=== PATIENT | male | born 1970 | race Caucasian/White ===

== ENCOUNTER 2022-01-07 14:38 | Inpatient (IN) | payer OTHER ==
[2022-01-07 15:26] VITALS: BMI 27.8
[2022-01-07] MEDS ORDERED: NICOTINE 10 MG CARTRIDGE (INHALER) IH PRN (15:51)
[2022-01-07] MEDS ORDERED: LOPERAMIDE HCL 2 MG CAPSULE PO PRN (15:51)
[2022-01-07] MEDS ORDERED: MAGNESIUM CITRATE 300 ML BOTTLE PO PRN (15:51)
[2022-01-07] MEDS ORDERED: MAG HYDROX/AL HYDROX/SIMETH 30 ML UNIT-DOSE CUP PO PRN (15:51)
[2022-01-07] MEDS ORDERED: MAGNESIUM HYDROX 2400MG/30ML ORAL SUSPENSION 30 ML CUP PO PRN (15:51)
[2022-01-07] MEDS ORDERED: ONDANSETRON *ODT* 4 MG TABLET SL PRN (15:51)
[2022-01-07] MEDS ORDERED: BISMUTH SUBSALICYLATE 524 MG/30 ML PO PRN (15:51)
[2022-01-07] MEDS ORDERED: IBUPROFEN 400 MG TABLET (FP) PO PRN (15:51)
[2022-01-07] MEDS ORDERED: ACETAMINOPHEN 325 MG TABLET (FP) PO PRN ×2 (15:51)
[2022-01-07] MEDS ORDERED: MENTHOL/PHENOL 1 EACH UD MM PRN (15:51)
[2022-01-07] MEDS: hydrOXYzine PAMOATE 25 MG CAPSULE (FP) PO SCH ×2 (22:25→22:36)
[2022-01-07] MEDS ORDERED: METHOCARBAMOL 500 MG TABLET ONE (22:30)
[2022-01-07] MEDS ORDERED: hydrOXYzine PAMOATE 25 MG CAPSULE (FP) PO ONE (22:30)
[2022-01-07] MEDS: MELATONIN 5 MG TABLETS PO SCH (22:36)
[2022-01-07] MEDS: METHOCARBAMOL 500 MG TABLET PO PRN (22:36)
[2022-01-07] MEDS: THIAMINE HCL 100 MG TABLET (FP) PO SCH (22:36)
[2022-01-08] MEDS: hydrOXYzine PAMOATE 25 MG CAPSULE (FP) PO SCH ×5 (06:43→22:07)
[2022-01-08] MEDS ORDERED: chlordiazePOXIDE HCL 25 MG CAPSULE PO PRN (09:24)
[2022-01-08] MEDS: PRENATAL VITAMINS W/ FOLIC ACID TABLET (FP) PO SCH (10:19)
[2022-01-08] MEDS: METHOCARBAMOL 500 MG TABLET PO PRN (10:20)
[2022-01-08] MEDS: chlordiazePOXIDE HCL 25 MG CAPSULE PO SCH ×3 (10:47→22:07)
[2022-01-08 11:22] LABS: CALCIUM 8.3 mg/dL (8.5-10.1)
[2022-01-08 11:23] LABS: ALBUMIN 3.2 g/dl (3.4-5.0)
[2022-01-08 11:26] LABS: CREATININE 1.2 mg/dL (0.55-1.3)
[2022-01-08 11:27] LABS: BILIRUBIN,TOTAL 0.3 mg/dL (0.2-1); HEMATOCRIT 46.7 % (35.4-49); HEMOGLOBIN 16.2 GM/dL (11.7-16.9); MCH 32.9 pg (25.7-33.7); MCHC 34.7 g/dl (32.0-35.9); MEAN CELL VOLUME 94.8 fl (80-96); MEAN PLT VOLUME 8.8 fl (7.5-11.1); PLATELET COUNT 196 10^3/uL (134-434); RBC 4.93 M/mm3 (4.00-5.60); RDW 14.2 % (11.9-15.9); TOT PROT 6.1 g/dl (6.4-8.2); WHITE BLOOD COUNT 5.2 K/mm3 (4.0-10.0)
[2022-01-08] MEDS: THIAMINE HCL 100 MG TABLET (FP) PO SCH (22:07)
[2022-01-08] MEDS: MELATONIN 5 MG TABLETS PO SCH (22:08)
[2022-01-08] MEDS: CALAMINE 8% TOPICAL LOTION 177 ML BOTTLE TP PRN (23:06)
[2022-01-09] MEDS: chlordiazePOXIDE HCL 25 MG CAPSULE PO SCH ×4 (05:15→22:09)
[2022-01-09] MEDS: hydrOXYzine PAMOATE 25 MG CAPSULE (FP) PO SCH ×5 (05:15→22:14)
[2022-01-09] MEDS: CALAMINE 8% TOPICAL LOTION 177 ML BOTTLE TP PRN (05:17)
[2022-01-09] MEDS: PRENATAL VITAMINS W/ FOLIC ACID TABLET (FP) PO SCH (10:21)
[2022-01-09] MEDS: METHOCARBAMOL 500 MG TABLET PO PRN (10:21)
[2022-01-09 13:07] LABS: SARS-CoV-2 NAA Not Detected (Not Detected)
[2022-01-09] MEDS: NICOTINE POLACRILEX 2 MG GUM BUC PRN ×2 (15:17→19:43)
[2022-01-09] MEDS: THIAMINE HCL 100 MG TABLET (FP) PO SCH (22:09)
[2022-01-09] MEDS: MELATONIN 5 MG TABLETS PO SCH (22:14)
[2022-01-10] MEDS: chlordiazePOXIDE HCL 25 MG CAPSULE PO SCH ×4 (05:28→22:25)
[2022-01-10] MEDS: hydrOXYzine PAMOATE 25 MG CAPSULE (FP) PO SCH ×5 (05:29→22:26)
[2022-01-10] MEDS: NICOTINE POLACRILEX 2 MG GUM BUC PRN ×3 (08:55→19:41)
[2022-01-10] MEDS: PRENATAL VITAMINS W/ FOLIC ACID TABLET (FP) PO SCH (10:26)
[2022-01-10] MEDS: METHOCARBAMOL 500 MG TABLET PO PRN (10:26)
[2022-01-10] MEDS: CALAMINE 8% TOPICAL LOTION 177 ML BOTTLE TP PRN (19:43)
[2022-01-10 21:25] VITALS: TEMP 97.5
[2022-01-10] MEDS: THIAMINE HCL 100 MG TABLET (FP) PO SCH (22:25)
[2022-01-10] MEDS: MELATONIN 5 MG TABLETS PO SCH (22:25)
[2022-01-11] MEDS ORDERED: chlordiazePOXIDE HCL 10 MG CAPSULE PO PRN
[2022-01-11] MEDS ORDERED: chlordiazePOXIDE HCL 10 MG CAPSULE PO SCH (05:00)
[2022-01-11] MEDS: hydrOXYzine PAMOATE 25 MG CAPSULE (FP) PO SCH (05:25)
[2022-01-11] MEDS: NICOTINE POLACRILEX 2 MG GUM BUC PRN (05:33)
[2022-01-11 06:24] VITALS: BP 103/63; PULSE 71
[2022-01-12] MEDS ORDERED: chlordiazePOXIDE HCL 10 MG CAPSULE PO SCH (05:00)
[2022-01-13] MEDS ORDERED: chlordiazePOXIDE HCL 10 MG CAPSULE PO ONE (05:00)
== END 2022-01-11 09:30 | disposition home or self-care (01) | DRG 774 ==
LOC: YASAS 14:38 → Y6N 22:53
PROVIDERS: ADMIT Allergy & Immunology; ATTEND Allergy & Immunology
PROC: HZ2ZZZZ Detoxification Services for Substance Abuse Treatment (ICD-10-PCS; principal; 2022-01-07)
DX: F10.230 Alcohol dependence with withdrawal, uncomplicated (principal); F14.20 Cocaine dependence, uncomplicated; F17.210 Nicotine dependence, cigarettes, uncomplicated; F32.A Depression, unspecified; L30.9 Dermatitis, unspecified; M54.50 Low back pain, unspecified; G89.29 Other chronic pain; R73.03 Prediabetes; Z59.00 Homelessness unspecified; Z56.0 Unemployment, unspecified
CPT/HCPCS: 36415; 80053; 82962; 85027; 86780; C9803; U0003; U0005